=== PATIENT | female | born 1975 | race Hispanic/Latino ===

== ENCOUNTER 2017-07-19 03:29 | Emergency (ER) | payer SELFPAY ==
[2017-07-19] MEDS ORDERED: HYDROCODONE/ACETAMINOPHEN 10/325 MG TAB ONE (03:58)
== END 2017-07-19 04:11 | disposition home or self-care (01) ==
LOC: EDH 03:29
DX: H60.512 Acute actinic otitis externa, left ear (principal); E07.9 Disorder of thyroid, unspecified; Z79.899 Other long term (current) drug therapy

== ENCOUNTER 2019-07-04 18:01 | Emergency (ER) | payer OTHER ==
[2019-07-04] MEDS ORDERED: ACETAMINOPHEN EXTRA STRENGTH 500 MG TABLET ONE (18:57)
[2019-07-04] MEDS ORDERED: ONDANSETRON ODT 4 MG TAB ONE (18:58)
[2019-07-04] MEDS ORDERED: IBUPROFEN 800 MG TAB ONE (18:58)
== END 2019-07-04 19:51 | disposition home or self-care (01) ==
LOC: EDH 18:01
DX: J10.1 Influenza due to other identified influenza virus with other respiratory manifestations (principal); F41.9 Anxiety disorder, unspecified; E11.9 Type 2 diabetes mellitus without complications
CPT/HCPCS: 87804

== ENCOUNTER 2019-11-14 20:21 | Emergency (ER) | payer SELFPAY | END 2019-11-14 23:03 | disposition home or self-care (01) | LOC: EDH 20:21 | DX: S93.492A Sprain of other ligament of left ankle, initial encounter (principal); S80.02XA Contusion of left knee, initial encounter; F41.9 Anxiety disorder, unspecified; E11.9 Type 2 diabetes mellitus without complications; E07.9 Disorder of thyroid, unspecified; Z98.890 Other specified postprocedural states; W10.8XXA Fall (on) (from) other stairs and steps, initial encounter; Y93.89 Activity, other specified; Y92.89 Other specified places as the place of occurrence of the external cause; Y99.8 Other external cause status | CPT/HCPCS: 29505; 73562; 73590; 73610 ==

== ENCOUNTER → 2020-04-16 | Outpatient (CLI) | payer OTHER | END | disposition home or self-care (01) | LOC: RAH 12:41 | PROVIDERS: ATTEND Nurse Practitioner Adult Health | DX: Z12.31 Encounter for screening mammogram for malignant neoplasm of breast (principal) | CPT/HCPCS: 77067 ==

== ENCOUNTER → 2020-04-20 | Outpatient (CLI) | payer OTHER | END | disposition home or self-care (01) | LOC: RAH 13:52 | PROVIDERS: ATTEND Nurse Practitioner Adult Health | DX: N63.21 Unspecified lump in the left breast, upper outer quadrant (principal) | CPT/HCPCS: 76641 ==

== ENCOUNTER 2020-05-02 22:26 | Emergency (ER) | payer OTHER ==
[2020-05-02 22:49] LABS: BASOPHILS % (AUTO) 0.4 % (0.0-5.0); EOSINOPHILS % (AUTO) 5.4 % (0.0-8.0); HEMATOCRIT 38.1 % (36-48); MEAN CORPUSCULAR HEMOGLOBIN 27.8 pg (27.0-33.0); MEAN CORPUSCULAR HGB CONC 32.5 g/dL (32.0-36.0); MEAN CORPUSCULAR VOLUME 85.4 fL (79-99); MONOCYTES % (AUTO) 7.8 % (3.0-13.0); PLATELET COUNT (AUTO) 278 K/uL (130-400); RED BLOOD CELL COUNT(AUTO) 4.46 MIL/uL (4.00-5.50); RED CELL DISTRIBUTION WIDTH 13.6 % (11.0-15.5); WHITE BLOOD COUNT (AUTO) 9.4 K/uL (4.8-10.8)
[2020-05-02] MEDS ORDERED: FAMOTIDINE/PF 20 MG/2 ML VIAL IV ONE (22:55)
[2020-05-02 22:58] LABS: APPEARANCE,URINE Clear (CLEAR); BILIRUBIN,URINE Negative (NEGATIVE); COLOR,URINE Yellow (YELLOW); GLUCOSE, URINE (UA) >=1000 mg/dL (NEGATIVE); KETONES,URINE Negative (NEGATIVE); LEUKOCYTE ESTERASE ,URINE Negative (NEGATIVE); NITRATE,URINE Negative (NEGATIVE); OCCULT BLOOD,URINE Negative (NEGATIVE); PH,URINE 5.5 (5.0-8.0); PROTEIN,URINE Negative (NEGATIVE); UROBILINOGEN,URINE 0.2 mg/dL (0.2-1.0)
[2020-05-02 23:00] LABS: HCG,QUAL RESULT NEGATIVE (NEGATIVE)
[2020-05-02 23:01] LABS: CREATININE 0.8 mg/dL (0.5-1.5); POTASSIUM 3.7 mmol/L (3.5-5.1)
[2020-05-02] MEDS ORDERED: HYDRALAZINE HCL 25 MG TABLET ONE (23:01)
[2020-05-02 23:05] LABS: ALBUMIN 3.7 g/dL (3.5-5.0); BILIRUBIN,TOTAL 0.2 mg/dL (0.2-1.0); TOTAL PROTEIN, SERUM 7.9 g/dL (6.0-8.3)
[2020-05-02 23:06] LABS: BACTERIA,URINE None Seen /HPF (None Seen); RBC,URINE None Seen /HPF (0-1); SQUAMOUS EPITHELIAL CELL,UR Rare /HPF (0-2); WBC,URINE None Seen /HPF (0-1); YEAST,URINE BUDDING None Seen /HPF (None Seen)
== END 2020-05-03 02:24 | disposition home or self-care (01) ==
LOC: EDH 22:26
DX: R07.89 Other chest pain (principal); R00.2 Palpitations; Z20.828 Contact with and (suspected) exposure to other viral communicable diseases; F41.9 Anxiety disorder, unspecified; E11.9 Type 2 diabetes mellitus without complications; E07.9 Disorder of thyroid, unspecified; Z98.890 Other specified postprocedural states
CPT/HCPCS: 36415; 71045; 80053; 81001; 81025; 84484 ×2; 85025; 87426; 93005; 96374; 99285; J3490

== ENCOUNTER 2020-11-09 16:35 | Inpatient (IN) | payer OTHER ==
[~2020-11-09] VITALS: Ht 152.4 cm; Wt 106.1 kg
[2020-11-09 17:13] LABS: HCG,QUAL RESULT NEGATIVE (NEGATIVE)
[2020-11-09 17:15] LABS: APPEARANCE,URINE Cloudy (CLEAR); BILIRUBIN,URINE Negative (NEGATIVE); COLOR,URINE Yellow (YELLOW); GLUCOSE, URINE (UA) >=1000 mg/dL (NEGATIVE); KETONES,URINE Trace mg/dL (NEGATIVE); LEUKOCYTE ESTERASE ,URINE Negative (NEGATIVE); NITRATE,URINE Negative (NEGATIVE); OCCULT BLOOD,URINE Trace (NEGATIVE); PH,URINE 5.5 (5.0-8.0); PROTEIN,URINE Negative (NEGATIVE)
[2020-11-09] MEDS ORDERED: SODIUM CHLORIDE 0.9% IV ONE (17:15)
[2020-11-09] MEDS ORDERED: VANCOMYCIN IV ONE (17:15)
[2020-11-09] MEDS ORDERED: KETOROLAC 30MG VIAL (30MG/ML) IV SCH (17:15)
[2020-11-09 17:29] LABS: BACTERIA,URINE Few /HPF (None Seen); RBC,URINE None Seen /HPF (0-1)
[2020-11-09 17:34] LABS: BASOPHILS % (AUTO) 0.3 % (0.0-5.0); EOSINOPHILS % (AUTO) 2.5 % (0.0-8.0); HEMATOCRIT 36.8 % (36-48); LYMPHOCYTES % (AUTO) 22.8 % (21.0-51.0); MEAN CORPUSCULAR HGB CONC 31.8 g/dL (32.0-36.0); MEAN CORPUSCULAR VOLUME 84.8 fL (79-99); MONOCYTES % (AUTO) 10.6 % (3.0-13.0); NEUTROPHILS % (AUTO) 63.3 % (40.0-77.0); PLATELET COUNT (AUTO) 247 K/uL (130-400); RED BLOOD CELL COUNT(AUTO) 4.34 MIL/uL (4.00-5.50); RED CELL DISTRIBUTION WIDTH 13.6 % (11.0-15.5); WHITE BLOOD COUNT (AUTO) 9.3 K/uL (4.8-10.8)
[2020-11-09 17:35] VITALS: BP 125/75
[2020-11-09 17:43] LABS: CREATININE 0.8 mg/dL (0.5-1.5); POTASSIUM 3.9 mmol/L (3.5-5.1)
[2020-11-09] MEDS ORDERED: VANCOMYCIN KIT 250 ML IV ONE (17:46)
[2020-11-09 17:47] LABS: ALBUMIN 3.2 g/dL (3.5-5.0); BILIRUBIN,TOTAL 0.3 mg/dL (0.2-1.0); TOTAL PROTEIN, SERUM 7.5 g/dL (6.0-8.3)
[2020-11-09 19:00] VITALS: BP 109/55
[2020-11-09] MEDS ORDERED: GLUCAGON 1MG KIT 1 MG ML IM PRN (19:45)
[2020-11-09] MEDS ORDERED: ACETAMINOPHEN 325 MG TAB PO PRN (19:45)
[2020-11-09] MEDS ORDERED: DEXTROSE 50%-WATER 50 ML DISP.SYRIN IV PRN (19:45)
[2020-11-09 21:00] VITALS: BP 126/77
[2020-11-09] MEDS: INSULIN HUMULIN R 100 UNIT/ML 3ML SQ SCH (21:41)
[2020-11-09] MEDS ORDERED: SODIUM CHLORIDE 0.9% 50 ML IV ONE (21:54)
[2020-11-09] MEDS: ZOSYN 3.375GM+NS 50ML 50 ML IV SCH (21:58)
[2020-11-09 22:00] VITALS: BP 124/73
[2020-11-09] MEDS: FAMOTIDINE 20MG TAB 20 MG TAB PO SCH (22:04)
[2020-11-10] VITALS (10 sets, daily range): BP systolic 115–128; BP diastolic 49–88
[2020-11-10] MEDS: KETOROLAC 15MG/ML VIAL (15MG/ML) IV PRN ×3 (02:32→20:25)
[2020-11-10] MEDS: ZOSYN 3.375GM+NS 50ML 50 ML IV SCH ×3 (06:00→20:24)
[2020-11-10] MEDS: INSULIN HUMULIN R 100 UNIT/ML 3ML SQ SCH ×4 (07:30→21:11)
[2020-11-10 08:25] LABS: BASOPHILS % (AUTO) 0.2 % (0.0-5.0); EOSINOPHILS % (AUTO) 3.1 % (0.0-8.0); HEMATOCRIT 37.2 % (36-48); MEAN CORPUSCULAR HEMOGLOBIN 26.6 pg (27.0-33.0); MEAN CORPUSCULAR HGB CONC 31.5 g/dL (32.0-36.0); MEAN CORPUSCULAR VOLUME 84.5 fL (79-99); MONOCYTES % (AUTO) 9.6 % (3.0-13.0); NEUTROPHILS % (AUTO) 58.7 % (40.0-77.0); PLATELET COUNT (AUTO) 241 K/uL (130-400); RED CELL DISTRIBUTION WIDTH 13.7 % (11.0-15.5)
[2020-11-10 09:10] LABS: HEMOGLOBIN A1C 10.8 % (4.0-6.0)
[2020-11-10] MEDS: FAMOTIDINE 20MG TAB 20 MG TAB PO SCH ×2 (09:11→20:24)
[2020-11-10] MEDS: ACETAMINOPHEN 325 MG TAB PO PRN (13:57)
[2020-11-10] MEDS ORDERED: GLIM2TAB30 PO (18:36)
[2020-11-10] MEDS ORDERED: CETI10TA57 PO (18:36)
[2020-11-10] MEDS ORDERED: LEVO50TA11 PO (18:36)
[2020-11-10] MEDS ORDERED: CITA10TA7 PO (18:36)
[2020-11-10] MEDS ORDERED: METF-444 PO (18:36)
[2020-11-10] MEDS ORDERED: OMEP20TA2 PO (18:36)
[2020-11-10] MEDS: CITALOPRAM 20 MG TABLET PO SCH (20:24)
[2020-11-10] MEDS: CETIRIZINE HCL 5 MG TABLET PO SCH (20:24)
[2020-11-10] MEDS ORDERED: NON-FORMULARY MEDICATION 1 EACH (Citalopram Hydrobromide (Citalopram HBr) 10 MG) PO SCH (21:00)
[2020-11-10] MEDS ORDERED: NON-FORMULARY MEDICATION 1 EACH (Cetirizine HCl 10 MG) PO SCH (21:00)
[2020-11-10] MEDS: INSULIN GLARGINE 100 UNITS/ML 10 ML VIAL SQ SCH (21:11)
[2020-11-11] MEDS: ZOSYN 3.375GM+NS 50ML 50 ML IV SCH ×3 (03:35→20:16)
[2020-11-11] MEDS: KETOROLAC 15MG/ML VIAL (15MG/ML) IV PRN ×2 (03:36→14:19)
[2020-11-11 03:44] VITALS: BP 108/72
[2020-11-11] MEDS: INSULIN HUMULIN R 100 UNIT/ML 3ML SQ SCH ×4 (05:13→20:26)
[2020-11-11] MEDS: LEVOTHYROXINE 50 MCG TABLET PO SCH (05:35)
[2020-11-11 06:11] LABS: BASOPHILS % (AUTO) 0.4 % (0.0-5.0); EOSINOPHILS % (AUTO) 3.6 % (0.0-8.0); HEMATOCRIT 34.3 % (36-48); LYMPHOCYTES % (AUTO) 35.1 % (21.0-51.0); MEAN CORPUSCULAR HGB CONC 32.4 g/dL (32.0-36.0); MEAN CORPUSCULAR VOLUME 83.5 fL (79-99); MONOCYTES % (AUTO) 8.7 % (3.0-13.0); NEUTROPHILS % (AUTO) 51.8 % (40.0-77.0); PLATELET COUNT (AUTO) 250 K/uL (130-400); RED BLOOD CELL COUNT(AUTO) 4.11 MIL/uL (4.00-5.50); RED CELL DISTRIBUTION WIDTH 13.8 % (11.0-15.5)
[2020-11-11 06:21] LABS: CREATININE 0.8 mg/dL (0.5-1.5); POTASSIUM 3.4 mmol/L (3.5-5.1)
[2020-11-11 09:04] VITALS: BP 122/65
[2020-11-11] MEDS: FAMOTIDINE 20MG TAB 20 MG TAB PO SCH ×2 (11:03→20:24)
[2020-11-11] MEDS: ACETAMINOPHEN 325 MG TAB PO PRN (11:04)
[2020-11-11 13:53] VITALS: BP 127/61
[2020-11-11 18:38] VITALS: BP 125/65
[2020-11-11 20:00] VITALS: BP 117/85
[2020-11-11] MEDS: CIPROFLOXACIN HCL 0.2%/HYDROCORT 1% 10 ML OTIC SUSP OTIC SCH (20:23)
[2020-11-11] MEDS: CETIRIZINE HCL 5 MG TABLET PO SCH (20:23)
[2020-11-11] MEDS: CITALOPRAM 20 MG TABLET PO SCH (20:24)
[2020-11-11] MEDS: INSULIN GLARGINE 100 UNITS/ML 10 ML VIAL SQ SCH (20:27)
[2020-11-11 23:57] VITALS: BP 128/69
[2020-11-12 04:00] VITALS: BP 124/72
[2020-11-12] MEDS: ZOSYN 3.375GM+NS 50ML 50 ML IV SCH ×3 (04:17→20:31)
[2020-11-12] MEDS: LEVOTHYROXINE 50 MCG TABLET PO SCH (06:06)
[2020-11-12] MEDS: INSULIN HUMULIN R 100 UNIT/ML 3ML SQ SCH ×3 (06:34→21:48)
[2020-11-12 07:47] VITALS: BP 107/63
[2020-11-12] MEDS: FAMOTIDINE 20MG TAB 20 MG TAB PO SCH ×2 (09:07→20:31)
[2020-11-12] MEDS: CIPROFLOXACIN HCL 0.2%/HYDROCORT 1% 10 ML OTIC SUSP OTIC SCH ×2 (09:08→20:32)
[2020-11-12 10:59] VITALS: BP 107/48
[2020-11-12 16:00] VITALS: BP 138/74
[2020-11-12 17:48] LABS: INR 1.04 (0.85-1.15); PROTHROMBIN TIME 11.3 SEC (9.6-11.6)
[2020-11-12 17:49] LABS: PARTIAL THROMBOPLASTIN TIME < 20.0 SEC (26.3-35.5)
[2020-11-12 19:25] VITALS: BP 140/59
[2020-11-12] MEDS: CETIRIZINE HCL 5 MG TABLET PO SCH (20:31)
[2020-11-12] MEDS: CITALOPRAM 20 MG TABLET PO SCH (20:31)
[2020-11-12] MEDS: INSULIN GLARGINE 100 UNITS/ML 10 ML VIAL SQ SCH (21:49)
[2020-11-12 23:53] VITALS: BP 115/58
[2020-11-13 04:14] VITALS: BP 118/69
[2020-11-13] MEDS: ZOSYN 3.375GM+NS 50ML 50 ML IV SCH ×3 (04:23→19:57)
[2020-11-13 04:58] LABS: BASOPHILS % (AUTO) 0.4 % (0.0-5.0); EOSINOPHILS % (AUTO) 3.6 % (0.0-8.0); HEMATOCRIT 34.5 % (36-48); MEAN CORPUSCULAR HGB CONC 31.6 g/dL (32.0-36.0); MEAN CORPUSCULAR VOLUME 85.4 fL (79-99); MONOCYTES % (AUTO) 9.3 % (3.0-13.0); NEUTROPHILS % (AUTO) 44.3 % (40.0-77.0); PLATELET COUNT (AUTO) 231 K/uL (130-400); RED BLOOD CELL COUNT(AUTO) 4.04 MIL/uL (4.00-5.50); RED CELL DISTRIBUTION WIDTH 13.5 % (11.0-15.5); WHITE BLOOD COUNT (AUTO) 6.7 K/uL (4.8-10.8)
[2020-11-13 05:05] LABS: CREATININE 0.6 mg/dL (0.5-1.5); POTASSIUM 3.4 mmol/L (3.5-5.1)
[2020-11-13] MEDS: INSULIN HUMULIN R 100 UNIT/ML 3ML SQ SCH ×4 (05:39→20:43)
[2020-11-13] MEDS: LEVOTHYROXINE 50 MCG TABLET PO SCH (06:19)
[2020-11-13 08:02] VITALS: BP 101/46
[2020-11-13] MEDS ORDERED: POTASSIUM CHLORIDE 10% ELIXIR 20 MEQ/15 ML UDCUP PO SCH (08:45)
[2020-11-13] MEDS: CIPROFLOXACIN HCL 0.2%/HYDROCORT 1% 10 ML OTIC SUSP OTIC SCH ×2 (09:29→19:58)
[2020-11-13] MEDS: FAMOTIDINE 20MG TAB 20 MG TAB PO SCH ×2 (09:29→19:57)
[2020-11-13 11:20] VITALS: BP 106/51
[2020-11-13 16:30] VITALS: BP 124/66
[2020-11-13] MEDS: CITALOPRAM 20 MG TABLET PO SCH (19:57)
[2020-11-13] MEDS: CETIRIZINE HCL 5 MG TABLET PO SCH (19:57)
[2020-11-13 20:18] VITALS: BP 112/60
[2020-11-13] MEDS: INSULIN GLARGINE 100 UNITS/ML 10 ML VIAL SQ SCH (20:42)
[2020-11-13] MEDS: KETOROLAC 15MG/ML VIAL (15MG/ML) IV PRN (22:06)
[2020-11-13 23:30] VITALS: BP 116/75
[2020-11-14] MEDS: ZOSYN 3.375GM+NS 50ML 50 ML IV SCH ×3 (03:46→20:42)
[2020-11-14 04:28] VITALS: BP 112/75
[2020-11-14] MEDS: INSULIN HUMULIN R 100 UNIT/ML 3ML SQ SCH ×4 (05:11→21:06)
[2020-11-14] MEDS: LEVOTHYROXINE 50 MCG TABLET PO SCH (05:19)
[2020-11-14 05:48] LABS: BASOPHILS % (AUTO) 0.3 % (0.0-5.0); EOSINOPHILS % (AUTO) 3.4 % (0.0-8.0); HEMATOCRIT 35.6 % (36-48); LYMPHOCYTES % (AUTO) 37.4 % (21.0-51.0); MEAN CORPUSCULAR VOLUME 84.4 fL (79-99); MONOCYTES % (AUTO) 7.8 % (3.0-13.0); NEUTROPHILS % (AUTO) 50.7 % (40.0-77.0); PLATELET COUNT (AUTO) 236 K/uL (130-400); RED BLOOD CELL COUNT(AUTO) 4.22 MIL/uL (4.00-5.50); RED CELL DISTRIBUTION WIDTH 13.5 % (11.0-15.5); WHITE BLOOD COUNT (AUTO) 7.1 K/uL (4.8-10.8)
[2020-11-14 06:00] LABS: CREATININE 0.7 mg/dL (0.5-1.5); POTASSIUM 3.8 mmol/L (3.5-5.1)
[2020-11-14 08:00] VITALS: BP 132/87
[2020-11-14] MEDS: CIPROFLOXACIN HCL 0.2%/HYDROCORT 1% 10 ML OTIC SUSP OTIC SCH ×2 (10:47→20:46)
[2020-11-14] MEDS: FAMOTIDINE 20MG TAB 20 MG TAB PO SCH ×2 (10:48→20:42)
[2020-11-14 12:00] VITALS: BP 101/47
[2020-11-14 16:00] VITALS: BP 117/72
[2020-11-14 20:00] VITALS: BP 118/66
[2020-11-14] MEDS: CITALOPRAM 20 MG TABLET PO SCH (20:42)
[2020-11-14] MEDS: CETIRIZINE HCL 5 MG TABLET PO SCH (20:42)
[2020-11-14] MEDS: INSULIN GLARGINE 100 UNITS/ML 10 ML VIAL SQ SCH (21:07)
[2020-11-14 23:57] VITALS: BP 124/74
[2020-11-15] MEDS: ACETAMINOPHEN 325 MG TAB PO PRN (00:54)
[2020-11-15 03:45] VITALS: BP 123/63
[2020-11-15] MEDS: LEVOTHYROXINE 50 MCG TABLET PO SCH (05:39)
[2020-11-15] MEDS: ZOSYN 3.375GM+NS 50ML 50 ML IV SCH (05:39)
[2020-11-15] MEDS: INSULIN HUMULIN R 100 UNIT/ML 3ML SQ SCH (06:07)
[2020-11-15 08:00] VITALS: BP 117/55
[2020-11-15] MEDS: FAMOTIDINE 20MG TAB 20 MG TAB PO SCH (08:50)
[2020-11-15] MEDS: CIPROFLOXACIN HCL 0.2%/HYDROCORT 1% 10 ML OTIC SUSP OTIC SCH (08:50)
== END 2020-11-15 10:00 | disposition home or self-care (01) | DRG 155 ==
LOC: EDH 16:35 → OBSVTOIN 19:41 → EDHIP 19:41 → INTOOBSV 19:41 → 3CH 11-10 08:26
PROVIDERS: ADMIT Internal Medicine; ATTEND Internal Medicine
PROC: 05HC33Z Insertion of Infusion Device into Left Basilic Vein, Percutaneous Approach (ICD-10-PCS; principal; 2020-11-09)
DX: H60.21 Malignant otitis externa, right ear (principal); H70.001 Acute mastoiditis without complications, right ear; Z68.42 Body mass index [BMI] 45.0-49.9, adult; H66.91 Otitis media, unspecified, right ear; E11.65 Type 2 diabetes mellitus with hyperglycemia; E66.01 Morbid (severe) obesity due to excess calories; F41.9 Anxiety disorder, unspecified; B96.5 Pseudomonas (aeruginosa) (mallei) (pseudomallei) as the cause of diseases classified elsewhere; Z79.84 Long term (current) use of oral hypoglycemic drugs; Z83.3 Family history of diabetes mellitus; E03.9 Hypothyroidism, unspecified; F32.9 Major depressive disorder, single episode, unspecified; Z98.51 Tubal ligation status
CPT/HCPCS: 36415; 70450; 70551; 71045; 80048; 80053; 81001; 81025; 82948; 83036; 85025; 85610; 85730; 87040; 87070; 87077; 87186; G0378; J1815; J1885; J2543; J3370; J7050

== ENCOUNTER → 2021-06-29 | Outpatient (CLI) | payer OTHER ==
[~2021-06-29] MED LIST: CETI10TA57 PO; CITA10TA89 PO; GLIM2TAB30 PO; LEVO50TA11 PO; METF-444 PO; OMEP20TA2 PO
== END | disposition home or self-care (01) ==
LOC: RAH 12:52
PROVIDERS: ATTEND Nurse Practitioner Adult Health
DX: Z12.31 Encounter for screening mammogram for malignant neoplasm of breast (principal); Z00.01 Encounter for general adult medical examination with abnormal findings
CPT/HCPCS: 77067

== ENCOUNTER 2021-10-02 18:30 | Emergency (ER) | payer OTHER ==
[~2021-10-02] VITALS: Ht 152.4 cm; Wt 99.8 kg
[2021-10-02 18:35] VITALS: BP 130/69
[2021-10-02] MEDS ORDERED: ACETAMINOPHEN 500 MG TABLET ONE (20:12)
[2021-10-02] MEDS ORDERED: IBUPROFEN 800 MG TAB ONE (20:13)
[2021-10-02] MEDS ORDERED: ACETAMINOPHEN 500 MG TABLET PO SCH (21:00)
[2021-10-02] MEDS ORDERED: IBUPROFEN 800 MG TAB PO SCH (21:00)
[2021-10-02] MEDS ORDERED: CEPH500B PO (21:07)
[2021-10-02] MEDS ORDERED: ACET-2247 PO (21:07)
== END 2021-10-02 21:25 | disposition home or self-care (01) ==
LOC: EDH 18:30
DX: S50.01XA Contusion of right elbow, initial encounter (principal); S63.591A Other specified sprain of right wrist, initial encounter; E11.9 Type 2 diabetes mellitus without complications; F41.9 Anxiety disorder, unspecified; E66.9 Obesity, unspecified; Z98.890 Other specified postprocedural states; Z79.84 Long term (current) use of oral hypoglycemic drugs; Z79.899 Other long term (current) drug therapy; W18.39XA Other fall on same level, initial encounter; Y93.89 Activity, other specified; Y92.89 Other specified places as the place of occurrence of the external cause; Y99.8 Other external cause status
CPT/HCPCS: 73080; 73110

== ENCOUNTER → 2022-08-13 | Outpatient (CLI) | payer OTHER ==
[~2022-08-13] MED LIST changes: +ACET-2247 PO; +CEPH500B PO
== END | disposition home or self-care (01) ==
LOC: RAH 13:57
PROVIDERS: ATTEND Nurse Practitioner Adult Health
DX: Z12.31 Encounter for screening mammogram for malignant neoplasm of breast (principal); N63.21 Unspecified lump in the left breast, upper outer quadrant
CPT/HCPCS: 77067